=== PATIENT | male | born 1980 | race Caucasian/White ===

== ENCOUNTER → 2018-03-03 07:09 | Outpatient (CLI) | payer MEDICAID, SELFPAY ==
--- NOTE | 2018-03-03 07:21 | MRI_ITS ---
STUDY: MRI RIGHT FOREFOOT WITHOUT CONTRAST REASON FOR EXAM: Male, 37 years old. Pain across the metatarsal phalangeal joints of right foot, marlo. 3rd and 4th joint (base of toes). Symptoms x 1.5-2 years, TECHNIQUE: Standardized fat and water weighted pulse sequences were obtained in all 3 orthogonal planes. COMPARISON: None. FINDINGS: There is degenerative arthrosis of the metatarsophalangeal joint of the hallux. Normal tibial and fibular sesamoids, with normal sesamoids-first metatarsal articulations. Normal interphalangeal joint of the hallux. There is edema of the proximal phalanx of the great toe. There is edema of the third metatarsal distal shaft and head. There is edema of the base of the third proximal phalanx. Normal medial and lateral heads of the flexor hallucis brevis tendons. Normal flexor and extensor hallucis longus tendons. Effusion at the third metatarsophalangeal (MTP) joint. Normal interphalangeal joints of the second through fifth toes. Normal proximal, middle and distal phalanges of the second through fifth toes. Normal flexor and extensor tendons of the second through fifth toes. Normal intrinsic muscles of the forefoot. There is intermetatarsal bursitis at the second and third interspaces. 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 There is a 1.8 x 0.3 cm subcutaneous bursal fluid collection in the fifth submetatarsal region. MRI/Lower Ext/No Jt/w/o IMPRESSION: Marrow edema of the third metatarsal and proximal phalanx and the first proximal phalanx with stress injury or stress fractures versus inflammatory arthropathy. Interdigital neuroma at the second interspace Electronically Signed: Gennaro Tejada MD at 17:07 EDT , Service support ,
== END ==
PROVIDERS: Visit Provider Podiatrist
DX: M77.51 Other enthesopathy of right foot and ankle (principal); S96.811A Strain of other specified muscles and tendons at ankle and foot level, right foot, initial encounter
CPT/HCPCS: 73718

== ENCOUNTER → 2018-05-11 14:24 | Outpatient (CLI) | payer MEDICAID, SELFPAY ==
[2018-05-11 15:34] LABS: Absolute Lymphocyte Count 2.59 X10^3/ul (0.83-4.51); Absolute Neutrophil Count 3.4 X10^3/uL (2.0-7.7); Basophil# 0.02 X10^3/uL; Basophil% 0.3 % (0-1); Eosinophil# 0.06 X10^3/uL; Eosinophils% 0.9 % (0-5); Hematocrit 41.5 % (40-54); Hemoglobin 14.9 g/dl (13.0-16.5); Lymphocyte # 2.59 X10^3/ul (4.0); Lymphocyte % 38.5 % (19-41); Mean Corp Hgb Conc 35.9 g/gl (32-36); Mean Corpuscular Hgb 30.4 pg (27.0-32.0); Mean Corpuscular Volume 84.7 fL (80-94); Mean Platelet Vol. 9.4 fl (6.2-12.0); Monocyte# 0.61 X10^3/uL; Monocyte% 9.1 % (0-10); Neutrophil # 3.41 X10^3/uL (2.7-7.7); Neutrophil % 50.8 % (47-70); Platelet Count 253 K/mm3 (150-450); RBC Distribution Width CV 11.9 % (11.6-14.6); White Blood Count 6.7 K/mm3 (4.4-11.0)
[2018-05-11 15:41] LABS: POSITIVE COUNT NO; POSITIVE DIFFERENTIAL NO; POSITIVE MORPHOLOGY NO
[2018-05-11 16:00] LABS: ALB/GLOB Ratio 1.1 RATIO (0.9-2.4); AST(SGOT) 26 U/L (15-37); Alanine Aminotransfer ALT/SGPT 51 U/L (16-61); Albumin, Serum 4.1 g/dL (3.2-5.0); Alkaline Phosphatase 68 U/L (45-117); Anion Gap 10 (5-15); BUN 14 mg/dL (7-18); BUN/Creat Ratio 12.4 RATIO (10-20); Calcium,Total 9.7 mg/dL (8.5-10.1); Chloride 101 mmol/L (98-107); Creatinine, Serum 1.13 mg/dL (0.70-1.30); EST Glomerular Filtration Rate 77 mL/min (>60); Est Glom Filt Rate - Afr Amer 93 mL/min (>60); Globulin 3.7 g/dL (2.2-4.2); Glucose 197 mg/dL (74-106); Protein, Total 7.8 g/dL (6.4-8.2); Sodium Level 140 mmol/L (136-145)
== END ==
PROVIDERS: Visit Provider Family Medicine
DX: Z01.818 Encounter for other preprocedural examination (principal)
CPT/HCPCS: 36415; 80053; 85025

== ENCOUNTER 2018-05-29 09:57 | Day surgery (SDC) | payer MEDICAID, SELFPAY ==
[2018-05-29] VITALS (7 sets, daily range): BP systolic 105–128; BP diastolic 63–86; PULSE 65–79; RESP 14–16; TEMP 36.4–36.8; O2SAT 94–98; BMI 32.5
[2018-05-29 10:36] LABS: Hemoglobin A1c 8.2 % (4.2-6.3)
[2018-05-29 10:36] LABS: Bedside Glucose 165 mg/dL (70-110)
--- NOTE | 2018-05-29 11:00 | RAD_ITS ---
STUDY: X-RAY - RIGHT FOOT CLINICAL: Male, 37 years old. Third metatarsal osteotomy TECHNIQUE: Single intraoperative fluoroscopic view(s) of the foot. COMPARISON: None. FINDINGS: A total of 20 seconds of fluoroscopy time along with a total dose of 0.1393 mGy utilized. Screw in the head of the third metatarsal. RAD/Foot 2 Views IMPRESSION: Intraoperative fluoroscopy. Screw in the head of third metatarsal. Electronically Signed: Colton Vasques DO at 5:06 EDT , Service support ,
[2018-05-29] MEDS: Cefazolin 2 GM in 0.9% Normal Saline 100 ML IV (11:29)
--- NOTE | 2018-05-29 11:30 | NEUR_PTH ---
PATIENT: JOHN SHELLEY LOC: [facility] [place] U#:[id number] AGE/SX: 37/M ROOM: RE05/29/[address]: Dr. Joey Santillan DPM : 1980 BED: DIS: 05/29/2018 SPEC #: [id number] RECD: 05/29/18 13:49 STATUS: DAVID MONALISA #: [id number] TRISTON: 05/29/18 11:[address]: Joey Santillan DEPT: SURGICAL PATHOLOGY RECD BY: Darien Smith ENTERED: 05/29/18 13:56 SP TYPE: NEUROMA OTHR DR: MARCELLE Fitch Tissues: NEUROMA Procedures: Special Stain Group I Surgery Specimen Level IV AFB Stain (control) GMS Stain (control) HEADER OPERATION: Third metatarsal osteotomy, repair of third MTPJ plantar plate PRE-OP DIAGNOSIS: Arthritis of third metatarsal, plantar plate tear, third metatarsal space neuroma TISSUE SUBMITTED: Neuroma of right foot MICROSCOPIC DIAGNOSIS Soft tissue of right foot, third metatarsal space, excision: Consistent with neuroma. Focal necrotizing granulomatous inflammation, negative for acid-fast bacilli and fungal organisms. AM:angela 06/01/18 COMMENT AFB and GMS stains with matched controls were used in the evaluation of this case. MICROSCOPIC DESCRIPTION Slides are reviewed. GROSS DESCRIPTION Received in fixative is one container labeled with the patient's name and designated neuroma of right foot. The specimen consists of multiple pieces of benjamin soft tissue that in aggregate measure 3 x 3 x 1.2 cm. The largest piece is bisected. The entire specimen is submitted in three cassettes. / KRISHNA:angela 05/29/18 TC:2 CPT: 07718, 96159 x2
[2018-05-29] MEDS: Bupivacaine 0.25% 30 ML Vial (13:19)
--- NOTE | 2018-05-29 13:36 | RAD_ITS ---
STUDY: X-RAY - RIGHT FOOT CLINICAL: Male, 37 years old. Postop, osteotomy of the third metatarsal. TECHNIQUE: 3 view(s) of the foot. COMPARISON: Right foot, May 29, 2018 MRI of the right foot, March 03, 2018. FINDINGS: There is an enthesophyte involving the posterior superior calcaneus at the site of insertion of the Achilles tendon. Normal talus and tarsal bones. Normal visualized subtalar, talonavicular, calcaneocuboid, tarsal and tarsometatarsal articulations. There are 2 screws transfixing the head and neck of the third metatarsal with evidence osteotomy. Otherwise normal metatarsals.. Normal metatarsophalangeal joint of the great toe. Normal tibial and fibular sesamoid bones. Normal interphalangeal joint of the great toe. Normal phalanges of the great toe. Normal second through fifth metatarsophalangeal joints. Normal interphalangeal joints and phalanges of the lesser toes. There is minimal dorsal soft tissue swelling over the forefoot. RAD/Foot min 3 Views IMPRESSION: Osteotomy of the head of the third metatarsal. Electronically Signed: Alberto Khan DO at 17:03 EDT Tel [phone], Service support ,
--- NOTE | 2018-05-29 13:38 | DCINST_ITS ---
Discharge Diet: Light diet - advance as tolerated Discharge Activity: May Not Drive, Use Crutches Weight Bearing Status: No weight bearing - No weightbearing right foot Keep extremity elevated above heart level: Right Leg - Keep right foot elevated with pillows for at least 50 minutes of every hour Call your doctor if your incision/area has: Continuous Slow Oozing, Sudden Increased Bleeding, Foul Smelling Discharge Call your doctor if you observe: Fever of 101 or Higher, Coldness, Increased Pain, Shortness of breath, Chest pain, Increased palpitations (irregular heartbeat), Calf discomfort, Uncontrolled pain Cleanse incision/area with: Do not get Incision Wet, Keep Dressing Clean & Dry Allergies/Adverse Reactions: Allergies No Known Allergies Allergy (Verified 05/26/18 11:05) Medications to take at Discharge Metformin HCl [Glucophage] 1,000 mg PO BID 05/26/18 Amoxicillin/Potassium Clav [Augmentin 500-125 Tablet] 1 ea PO Q12H 3 Days #6 tab 05/29/18 Hydrocodone/Acetaminophen [Vicodin 5-300 mg Tablet] 1 - 2 tab PO Q6H PRN PRN 3 Days #30 tab 05/29/18 The following prescriptions were given: Hydrocodone/Acetaminophen [Vicodin 5-300 mg Tablet] 1 - 2 tab PO Q6H PRN PRN 3 Days #30 tab PRN Reason: Pain Amoxicillin/Potassium Clav [Augmentin 500-125 Tablet] 1 ea PO Q12H 3 Days #6 tab Primary Care Physician: Daina Menchaca PA [Primary Care Provider] - Test Results: Test results from this visit will be discussed in further detail at your follow- up appointment, if applicable. Please Follow Up With: Joey Santillan DPM When: within 1 week, sooner if needed
--- NOTE | 2018-05-29 13:39 | PCM.OPRPT ---
Report of Operation Date of Procedure: 05/29/18 Pre-Operative Diagnosis: 3rd metatarsal phalangeal joint arthritis and plantar plate tear, right foot. 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 2nd and 3rd intermetatarsal space neuroma and bursitis right foot Surgery/Procedure Performed:: 3rd metatarsal osteotomy and repair of 3rd metatarsal phalangeal joint plantar plate, excision of 2nd and 3rd intermetatarsal space neuroma/bursa right foot Description of Surgical Findings:: torn plantar plate right 3rd metatarsal phalangeal joint with degenerative changes of the joint, large 2nd intermetatarsal space neuroma and bursa right, intermetatarsal space neuroma and bursa right 3rd intermetatarsal space. visual journalist: yes - Dr. Wright Type of Anesthesia:: Local MAC Specimen's removed: Excised 2nd and 3rd intermetatarsal space neuroma / bursa right foot Estimated Blood Loss (mL): 5mL Description of Procedure: Indications: This is a 37 year old gentleman with chronic right foot pain at the level of the 3rd metatarsal phalangeal joint and 2nd and 3rd intermetatarsal spaces. There is noted to be instability of the 3rd metatarsal phalangeal joint (MTPJ) with pain present at the level of the plantar plate, there is pain to the 3rd metatarsal phalangeal joint itself. There is pain at the level of the 2nd and 3rd intermetatarsal spaces consistent with intermetatarsal space neuroma. Pre operative MRI showed bone marrow edema to the 3rd metatarsal space and base of the 3rd toe proximal phalanx, there was noted to the intermetatarsal space neuroma to the 2nd intermetatarsal space as well as bursitis to the 2nd and 3rd intermetatarsal spaces. He has pain despite rest, activity modifications, anti-inflammatories, changes in shoegear, orthotic therapy, stretching therapy. He is normally very active, however this is painful and restricting his active level. We discussed further options - he would like to proceed forward with 3rd metatarsal osteotomy with repair of 3rd metatarsal phalangeal joint plantar plate, along with excision of 2nd and 3rd intermetatarsal space neuroma/bursitis on the right foot. We discussed this in detail, reviewed the procedures in great detail, as well as the possible benefits vs risks, and all alternative options. Reviewed the goals, expectations, and typical healing time / post operative recovery course. This was discussed with him in detail, and he elected to move forward with the planned procedures. The consent forms were reviewed with him, and he freely signed them. All of his questions were answered. Operative Procedure: The patient was brought back into the operative room and was placed on the operating room table in the supine position. He was carefully secured to the operating room table with a safety belt around his waist. A time out was performed and the patient was properly identified and the surgical plan was confirmed. The patient received 2g of IV Cefazolin for antibiotic prophylaxis. A well padded pneumatic tourniquet was applied around the right ankle. The patient did receive MAC anesthesia per the anesthesiologist, and a total of 10mL of 0.25% Bupivicaine plain as a regional nerve bloc around the 3rd ray on the right foot as well as to the 2nd and 3rd intermetatarsal spaces after the overlying skin was cleansed with 70% isopropyl alcohol. The right foot was scrubbed, prepped, draped in the usual aseptic fashion. The right foot was exsanguinated and the right ankle pneumatic tourniquet was inflated to 250mmHg. Attention was directed to the 3rd MTPJ, there was a positive dorsal drawer to the 3rd MTPJ consistent with a plantar plate tear. Using a 15 blade a linear longitudinal skin incision was overlying lateral aspect of the distal 3rd metatarsal and 3rd MTPJ on the dorsal aspect of the foot. Careful dissection was completed down through the subcutaneous layer to the dorsal 3rd MTPJ capsule. The capsule of the 3rd MTPJ was identified and was carefully incised dorsally, it was carefully reflected from the dorsal aspect, exposing the 3rd metatarsal head and base of the proximal phalanx of the 3rd toe. The 3rd MTPJ was visualized, there were degenerative changes seen, with thinning of the cartilage as well as some yellow discoloration, there was noted there was a central osteochondral lesion present, the overlying cartilage was intact. Using a powered sagittal saw a [place] osteotomy was completed to the 3rd metatarsal, being sure to place the osteotomy parallel to the weightbearing surface. The head of the 3rd metatarsal was shifted proximally to visualize the plantar plate, and temporarily fixated using a kwire. The joint was gently distracted. The plantar plate was visualized, it was noted that the plantar plate did have a tear and was also noted to be attenuated and degenerative. There were noted to be adhesions between the plantar plate and the flexor tendon. The plantar plate was freed up, the adhesions were released. The plantar plate was reapproximated, repaired, and tightened with the Arthrex CRP Scorpion hand piece and 0 FiberWire. The FiberWire was weaved through the plantar plate. Vertical parallel drill holes were made to the base of the 3rd toe proximal phalanx extra-articular in standard fashion, and the FiberWire was placed through the drill holes. The temporary fixation (kwire) was removed from the shaft and head of the 3rd metatarsal. The 3rd metatarsal head was drilled in retrograde fashion at the osteochondral site through the osteotomy site. This was done with a 0.062 inch kwire. The 3rd metatarsal was reapproximated to the distal end of the 3rd metatarsal. The 3rd metatarsal was shortened a few millimeters, and the osteotomy was fixated with two Arthrex snap off screws from the CPR kit. The 3rd toe was plantarflexed and the FberWire was tied down overlying the dorsal aspect of the base of the proximal phalanx of the 3rd toe. At this time there was negative dorsal drawer and there was complete repair of the plantar plate. The site was flushed out with copious amounts of normal saline solution. The joint capsule was reapproximated using 3-0 Vicryl, the subcutaneous tissue layer was reapproximated using 3-0 Vicryl. Attention was directed to the 3rd intermetatarsal space, and careful dissection was completed down to the deep transverse metatarsal ligament through the already made skin incision of the distal 3rd metatarsal and 3rd MTPJ as noted above. The deep transvere metatarsal ligament was identified and was released in sharp fashion. A neuroma and a soft tissue mass was identified and localized to the site. The mass was consistent with a bursa. The neuroma was enlarged, yellow, degenerative with perineural fibrosis, and the mass/bursa appeared inflamed, and yellow in appearance. These were carefully dissected out. The mass/bursa was excised. The neuroma was transected at the proximal aspect as well as the distal branches, and the neuroma was removed. These were removed and were passed from the surgical site and sent to pathology. All other tissue to the site was healthy and viable with no other abnormality present. The site was flushed out with copious amounts of normal saline solution, all tissues appeared to be healthy and viable with tissue planes intact. The subcutaneous tissue was reapproximated using 3-0 Vicryl. The skin was reapproximated using 3-0 Monocryl. All vital structures including all vital neurovascular structures were properly identified and protected/retracted as necessary. Attention was directed to the 2nd intermetatarsal space. A skin incision was made using a 15 blade on the dorsal aspect just lateral to the dorsal 2nd metatarsal. Careful dissection was completed down to the deep transverse metatarsal ligament which was released in sharp fashion. Again a neuroma as well as a soft tissue mass was identified and localized to the site. The mass was with a bursa. The neuroma was very large and was noted to be yellow, degenerative, with perineural fibrosis. The mass/bursa appeared inflamed, and yellow in appearance. These were carefully dissected out. The mass/bursa was excised. The neuroma was transected at the proximal aspect as well as the distal branches, and the neuroma was removed. These were removed and were passed from the surgical site and sent to pathology. All other tissue to the site was healthy and viable with no other abnormality present. The site was flushed out with copious amounts of normal saline solution, all tissues appeared to be healthy and viable with tissue planes intact. The subcutaneous tissue was reapproximated using 3-0 Vicryl. The skin was reapproximated using 3-0 Monocryl. All vital structures including all vital neurovascular structures were properly identified and protected/retracted as necessary. An additional 20 mL of 0.25% Bupivacaine plain was given as local nerve block around the surgical sites as needed throughout the procedure for further pain control. The right ankle pneumatic tourniquet was deflated at 85 minutes, and there was immediate return vascular flow to the foot, CFT < 2 seconds to all toes, normal temperature gradient, pedal pulses intact. Hemostasis was achieved prior to closure. A dressing was applied which consisted of Betadine soaked adaptic, 4x4 gauze, Kerlix, and ana maria bandage. The patient tolerated the above operative procedure well at the anesthesia well with no complication. The patient was transported to the recovery room with vital signs stable and in good condition. Post operative orders were placed. Post operative instructions were reviewed with the patient as well as with his who was here with him today. No weightbearing right foot, keep right foot elevated for at least 50 minutes of every hour, keep dressing clean, dry and intact. Prescription for Vicodin 5mg/300mg was prescribed: 1-2 tabs PO q 6 hours PRN pain. Also Augmentin was prescribed for antibiotic prophylaxis. He is to follow up with me within 1 week or sooner if needed. Post operative xrays were obtained in the recovery room, 3 views right foot which confirmed 3rd metatarsal osteotomy with fixation present, screws intact and alignment good. 3rd MTPJ in good position. No post operative complications seen. Grafts/Implants Used: Fiberwire, 2 snap off arthrex screws - Complications None
[2018-05-29 13:56] LABS: Bedside Glucose 113 mg/dL (70-110)
== END 2018-05-29 14:51 | disposition home or self-care (01) ==
LOC: SDC 09:57 → AC 09:58
PROVIDERS: Family Provider Physician Assistant; PCP Physician Assistant; Visit Provider Podiatrist
PROC: (CPT 28899; principal; 2018-05-29 11:15)
DX: M19.071 Primary osteoarthritis, right ankle and foot (principal); G57.81 Other specified mononeuropathies of right lower limb; M77.51 Other enthesopathy of right foot and ankle; S93.691A Other sprain of right foot, initial encounter; E11.9 Type 2 diabetes mellitus without complications; Z79.84 Long term (current) use of oral hypoglycemic drugs; X58.XXXA Exposure to other specified factors, initial encounter; Y93.89 Activity, other specified; Y92.89 Other specified places as the place of occurrence of the external cause; Y99.8 Other external cause status
CPT/HCPCS: 28308; 28899; 64782; 36415; 73620; 73630; 76000; 82962; 83036; 88304; 88305; 88312; C1713; J7120

== ENCOUNTER 2018-08-12 10:00 | Outpatient (RCR) | payer MEDICAID, SELFPAY ==
--- NOTE | 2018-07-20 07:57 | HP.PTEVAL ---
Patient's Visit Information JOHN SHELLEY is a 37 year old M referred to Physical Therapy by Joey Santillan with a diagnosis of R 3rd MTPJ plate repair and neuroma excision. Date of Evaluation: 07/20/18 Physical Therapist: Oliver Bravo DPT, OC - Visit Plan Frequency: 3x /Week Duration: 4-6 Weeks Plan: 3x/week to start for R 2/3 metatarsal and ankle mobs grade 4 to loosen up ankle and metatarsals. Gastroc and soleus stretching, scar massage. R ankle proprioception and strength progressing to squatting/lunging, step ups and low impact crossfit ex. No jogging or jumping yet. ice as needed. - Subjective Subjective: Had surgery on neuroma in R foot and fixed ligament in R foot. That was June 07. Was on crutches for 3 weeks NWB, then boot for last three weeks. Out of boot and FWB last week. No pain, numb due to nerves out. Sleeping OK. 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 Not since prior to surgery with impact. Has done some rowing and biking. No exercises specifically for foot. [employer] job and has been doing that. Doing housework last couple week and started weed eating in backyard and torn out beds. Sore alittle today after doing that. Did wean out of the boot last week. Onset was insidious. 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 Enjoys hiking and playing with kids, has 2,4,7 and 8 yo. - Objective Avoids push off R with end stage of stance in gait. Transfers I. Single leg stance much harder on R vs L and about 10 seconds vs 30+ on L. R ankle AROM 10 ev, 30 inv, 50 PF and 4 DF, L ankle is 15, 38, 60 and 6. R ankle strength 4+ DF, ev, inv, and 4- PF. 5/5 L. Gastroc and soleus feel tight. Incisions have mild scar tissue palpable on top of R foot. Numby and tingly upon pressure to underside of R MT. 2/3 Metatarsal ROM limited on R foot, very stiff. Big toe ext weak on R vs L 4 vs 5. - Goals Goal 1:: Full AROM R ankle and foot without pain. Goal Time Frame: 2-4 Weeks Goal 2:: Walk and climb steps without gait deviations or discomfort. Goal Time Frame: 4-6 Weeks Goal 3:: 5/5 strength tests R ankle Goal Time Frame: 2-4 Weeks Goal 4:: Ready to return to impact ex in crossfit Goal Time Frame: 4-6 Weeks - Rehabilitation Potential Physical Therapy Diagnosis: S/P R foot surgery with stiffness and gait abnormalities causing limitations. Rehabilitation Potential: Good - Anticipated Interventions Patient/Client Instruction: Educate patient on: Condition, Plan of Care For the Purpose of:: To increase ROM, To improve muscle performance and motor function, To improve gait and locomotor functions Therapeutic Exercise to Include: Strength training, Balance training, Flexibilty training, Gait and locomotor training, Passive ROM, Active ROM For the Purpose of:: To improve nutrient delivery to tissue, To improve muscle performance and motor function, To increase tolerance to activity/condition/position, To improve ability of physical actions for home/community/work/leisure Manual Therapy Techniques to Include: Scar massage, Mobilization For the Purpose of:: To increase ROM Cryotherapy (ice pack, ice massage): Yes For the Purpose of:: To decrease swelling/inflammation Thank you for the opportunity to evaluate your patient. For Medicare and Medicare HMO plans, please review the plan of care and approve it. It will need to be FAXED BACK to us at [phone] for Medicare purposes. Please let me know if there are questions or concerns regarding this plan of care. Physician Signature: Date:
--- NOTE | 2018-08-12 10:51 | HP.PTDCSUM ---
HP - PT D/C Summary It has been my pleasure to treat JOHN SHELLEY under orders from Joey Santillan, for the diagnosis of R 3rd MTPJ plate repair and neuroma excision for a total of 8 visit(s). Discharge Date: 08/12/18 Please see the following information for a summary of their discharge status. - Subjective Subjective: Good. Using and moving it. Saw doctor and can start impact today. Life normal outside of jogging and jumping/impact. No pain in foot lately. No f/u with doctor. - Pain right ankle Pain Intensity (Out of 10): 0 - Objective Objective/Function: Full aROM R foot and ankle, 2 MT slightly stiff but functional, scarring feels good. 5/5 ankle and big toe strength. SLS is 30+ seconds. Hops x 10 without compensation. Jogs 2 minutes@5.5mph today without antalgia or deficits. OVERALL DOING EXCELLENT. - Goals Goal 1:: Full AROM R ankle and foot without pain. Goal Progress: Goal Met Goal 2:: Walk and climb steps without gait deviations or discomfort. Goal Progress: Goal Met Goal 3:: 5/5 strength tests R ankle Goal Progress: Goal Met Goal 4:: Ready to return to impact ex in crossfit Goal Progress: Goal Met - Plan Plan: D/C - D/C Information Discharge Comments: Pt doing well and is released from doctor. He is a hard worker adn I reviewed weaning back slowly to impact activities today with jogging and jumping. If there are questions or concerns regarding this patient's physical therapy, please feel free to call me at [phone]. Thank you for the referral of this patient. Sincerely, Oliver Bravo, DPT, OC
== END 2018-08-12 19:00 | disposition home or self-care (01) ==
LOC: PT 10:00
PROVIDERS: Family Provider Physician Assistant; PCP Physician Assistant; Visit Provider Podiatrist
DX: Z98.890 Other specified postprocedural states (principal)
CPT/HCPCS: 97110; 97162; 97530

== ENCOUNTER → 2024-06-15 | Outpatient (CLI) | payer MEDICAID, SELFPAY ==
--- NOTE | 2024-06-15 09:30 | MRI_ITS ---
STUDY: MRI LEFT FOREFOOT WITHOUT CONTRAST REASON FOR EXAM: Male, 43 years old. Mass left foot, 1st metatarsal head. TECHNIQUE: Standardized fat and water weighted pulse sequences were obtained in all 3 orthogonal planes. COMPARISON: None. FINDINGS: There is a pressure lesion in the soft tissues plantar to the first metatarsal head with a tiny focus of cystic adventitious bursitis (sagittal STIR series 8 images 21-26). There is mild cystic adventitious bursitis plantar to the fifth metatarsal head (sagittal STIR series 8 images 5-8). There is marrow stress edema in the tibial hallux sesamoid and adjacent plantar medial aspect of the first metatarsal head (axial STIR series 6 image 15). Normal bone marrow of the remainder of the metatarsals, phalanges and visualized distal tarsal row, without fracture, periostitis, erosions or reactive bone edema. Normal joint spaces, without effusions. Normal visualized Lisfranc joints and normal Lisfranc ligament. There is mild second intermetatarsal space bursitis. Normal visualized extensor digitorum longus, extensor hallucis longus, flexor digitorum brevis and flexor hallucis longus tendons. Normal visualized plantar fascia without fasciitis, fibromatosis or tear. Normal intrinsic muscles of the foot, without soft tissue masses or evidence of denervation atrophy. MRI/Lower Ext/No Jt/w/o IMPRESSION: Pressure lesion in the soft tissues plantar to the first metatarsal head with a tiny focus of cystic adventitious bursitis. Mild cystic adventitious bursitis plantar to the fifth metatarsal head. Marrow stress edema in the tibial hallux sesamoid and adjacent plantar medial aspect of the first metatarsal head. Mild second intermetatarsal space bursitis. Electronically Signed: Parrish Murillo MD at 11:05 EDT ,
== END | disposition home or self-care (01) ==
PROVIDERS: PCP Physician Assistant; Referring Provider Podiatrist; Visit Provider Podiatrist
DX: M79.672 Pain in left foot (principal)
CPT/HCPCS: 73718